=== PATIENT | male | born 1965 | race Caucasian/White ===

== ENCOUNTER 2024-06-18 09:51 | Inpatient (IN) | payer SELFPAY ==
[~2024-06-18] VITALS: Ht 175.3 cm; Wt 64.0 kg
[2024-06-18] VITALS (12 sets, daily range): BP systolic 91–128; BP diastolic 49–70
[~2024-06-18 09:51] MED LIST: LISINOPRIL5 MG PO; METFORMIN500 MG PO; SIMVASTATIN10 MG PO
--- NOTE | 2024-06-18 09:54 | NUR ---
PT BROUGHT IN VIA EMS TO ER ROOM 10
[2024-06-18 10:13] LABS: BASO% 0.3 % (0-3); EOS% 0.1 % (0-8); HEMATOCRIT 40.5 % (39.0-50.0); HEMOGLOBIN 13.9 g/dl (14.0-18.0); IMMATURE GRANULOCYTES 0.3 % (0.0-5.0); LYMPH% 19.2 % (15-41); MEAN CELL VOLUME 95.5 fL CALC (80.0-100.0); MEAN CORPUSCULAR HGB 32.8 pG CALC (26.0-32.0); MEAN CORPUSCULAR HGB CONC 34.3 g/dL CAL (32.0-36.0); MONO% 7.1 % (2-13); NEUT# 5.83 thou/uL (1.82-7.42); RED BLOOD COUNT 4.24 mill/uL (4.70-6.10); RED CELL DISTRI WIDTH 11.7 % (11.5-15.5)
[2024-06-18] MEDS ORDERED: SODIUM CHLORIDE 0.9% 1,000 ML IV ONE ×2 (10:15→12:40)
[2024-06-18 10:27] LABS: ALBUMIN 3.7 g/dL (3.2-5.0); ALKALINE PHOSPHATASE 86 u/l (38-126); ANION GAP 12 (6-22 (CALC)); BILIRUBIN, TOTAL 0.6 mg/dL (0.2-1.3); BUN 4 mg/dL (8-23); BUN/CREATININE RATIO 6 (12-20 (CALC)); CARBON DIOXIDE 26 mmol/l (22-30); CHLORIDE 99 mmol/l (95-108); CREATININE 0.6 mg/dL (0.7-1.3); ESTIMATED GFR 110 ML/MIN (>=90 (CALC)); LIPASE 160 u/l (23-300); POTASSIUM 4.2 mmol/l (3.5-5.1); SGOT/AST 32 u/l (19-48); SODIUM 133 mmol/l (137-146); TOTAL PROTEIN 7.7 g/dL (6.3-8.2)
--- NOTE | 2024-06-18 11:10 | NUR ---
PT TO XRAY VIA W/C W/OUT INCIDENT
--- NOTE | 2024-06-18 11:30 | NUR ---
PT RETURNS TO TX RM 10, MADE COMFORTABLE.REMAINS ON MONITOR, PROVIDED WARM BLANKETS FOR COMFORT.
[2024-06-18 11:38] LABS: URINE BILIRUBIN - DIPSTICK Negative (NEGATIVE); URINE BLOOD DIPSTICK Negative (NEGATIVE); URINE GLUCOSE - DIPSTICK Negative (NEGATIVE); URINE KETONE Negative (NEGATIVE); URINE LEUK ESTERASE Negative (NEGATIVE); URINE NITRITE - DIPSTICK Negative (Negative); URINE PH 5.5 (4.5-8.0); URINE PROTEIN - DIPSTICK Negative (NEG-TRACE); URINE SPECIFIC GRAVITY <=1.005; URINE UROBILINOGEN - DIPSTICK 0.2 E.U./dL (0.2)
[2024-06-18 11:39] LABS: URINE COLOR Yellow
[2024-06-18] MEDS ORDERED: SUGAMMADEX SODIUM 200 MG/2 ML SDV IV ONE (12:02)
[2024-06-18] MEDS ORDERED: LIDOCAINE HCL 2% (20 MG/ML) 5ML SDV IV ONE (12:02)
[2024-06-18] MEDS ORDERED: PHENYLEPHRINE HCL 10 MG/ML VIAL IV ONE (12:02)
[2024-06-18] MEDS ORDERED: SUCCINYLCHOLINE CHLORIDE 20 MG/ML 10ML VIAL IV ONE (12:02)
[2024-06-18] MEDS ORDERED: KETOROLAC TROMETHAMINE 30 MG/ML SDV IV ONE (12:02)
[2024-06-18] MEDS ORDERED: ROCURONIUM BROMIDE 10 MG/ML 5 ML VIAL IV ONE (12:02)
[2024-06-18] MEDS ORDERED: PROPOFOL 200 MG/20 ML VIAL IV ONE (12:02)
[2024-06-18] MEDS ORDERED: SODIUM CHLORIDE 0.9% 1,000 ML BAG IV ONE (12:02)
[2024-06-18] MEDS ORDERED: PIPERACILLIN Sodium-Tazobactam 3.375 GM in SODIUM CHLORIDE 0.9% 100 ML IV ONE (12:20)
--- NOTE | 2024-06-18 12:30 | NUR ---
ER MD AT BEDSIDE, DETAILED EXPLAINATION OF FINDINGS AND PLAN OF CARE, PT DENEIS ANY DISTRESS AT THIS TIME. PT REMAINS ON MONITOR, DENIES ANY NEEDS OR CONCERNS AT THIS TIME.
--- NOTE | 2024-06-18 12:45 | NUR ---
MD AT BEDSIDE, DETAILED EXPLAINATION OF PROCEDURE, PT VERBALIZES UNDERSTANDING OF ALL INFORMATION
--- NOTE | 2024-06-18 13:06 | NUR ---
bEDSIDE REPORT TO OR TEAM. DENIES ANY QUESTIONS UPON COMP[LETION
[2024-06-18] MEDS ORDERED: LIDOcaine HCl 1% (Local Anesth.) 20 ML VIAL ONE (13:07)
[2024-06-18] MEDS ORDERED: FAMOTIDINE 10MG/ML 2ML SDV IV ONE (13:23)
[2024-06-18] MEDS ORDERED: ACETAMINOPHEN 100 ML IV ONE (13:23)
[2024-06-18] MEDS ORDERED: SODIUM CHLORIDE 1,000 ML BTL IR ONE (13:40)
[2024-06-18] MEDS ORDERED: SODIUM CHLORIDE 500 ML BTL IR ONE (13:40)
--- NOTE | 2024-06-18 13:55 | NUR ---
PT ARRIVED TO THE UNIT VIA BED FROM THE OR, BEDSIDE REPORT GIVEN, PT IS A&O X3, PUPILS ARE PERRL, RESP. EVEN AND UNLABORED, LUNG SOUNDS ARE CLEAR, ABD DISTENDED AND SOFT WITH ACTIVE BOWEL SOUNDS, ABD DRESSING IN PLACE CD&I WITH HOPE DRAIN IN PLACE, TORRES CATH IN PLACE WITH CLEAR YELLOW URINE DRAINING, 18G RAC IV WITH FLUIDS INFUSING AT PRESCRIBED RATE, 18G LW SL, STRONG RADIAL & PEDAL PULSES, PT ORIENTED TO ROOM AND CALL GERARD SYSTEM, SAFETY MEASURES INFORCED, CALL GERARD WITHIN REACH
[2024-06-18] MEDS ORDERED: HYDROmorphone HCL 2 MG/AMP IV PRN (15:10)
[2024-06-18] MEDS ORDERED: SODIUM CHLORIDE 0.9% 1,000 ML IV PRN (15:10)
[2024-06-18] MEDS ORDERED: ONDANSETRON HCl 4 MG/2 ML SDV IV PRN (15:10)
[2024-06-18] MEDS ORDERED: DEXTROSE 250 ML IV PRN (15:15)
[2024-06-18] MEDS ORDERED: LABETALOL HCL 100 MG/TAB PO SCH (16:00)
[2024-06-18] MEDS ORDERED: NICOTINE TRANSDERMAL 21 MG/PATCH TD SCH (16:00)
--- NOTE | 2024-06-18 16:17 | NUR ---
patient glucose level is 154.
[2024-06-18] MEDS ORDERED: INSULIN LISPRO 100 UNITS/ML ML SC SCH (17:00)
--- NOTE | 2024-06-18 19:20 | NUR ---
PT RESTING IN BED AT THIS MOMENT. PT WAS LET KNOWN THAT HE NEEDED TO STAND AND SIT UP ON THE RECLINER AND HE AGREED. ASSISTED PT TO THE RECLINER AND TOLERATED WELL. REPORTS PAIN TO HER ABDOMEN 4/10 ON PAIN SCALE. BLOOD PRESSURE REMAINS SLIGHTLY LOW- WILL CONTINUE TO MONITOR SO HE CAN BE MEDICATED WITH DILAUDID. DRESSING TO ABDOMEN IS INTACT AND CLEAN WITHOUT ANY DRAINAGE NOTED. HOPE DRAIN EMPTIED WITH A LARGE AMOUNT OF SERONSANGUINEOUS FLUID 170 MLS. BOWEL SOUNDS ARE HYPOACTIVE AND ABDOMEN IS DISTENDED BUT SOFT. TORRES DRAINING CLEAR URINE AND EMPTIED WITH 200 CC. IVF NORMAL SALINE PATENT AND INFUSING VIA RIGHT FOREARM AT 125 MLS/HR ORDERED. 18 L FOREARM FLUSHED WITH 5 CC WELL AND WORKING PROPERLY. TELE MONITOR IN PLACE WITH ELADS INTACT AND WORKING WELL. BILATERAL SCD'S IN PLACE. NO EDMA NOTED TO LOWER EXTREMITIES AND PERIPHERAL PULSES PALPABLES TO TOUCH. ENCOURAGED AND INCTRUCTED ON HOW TO USE INCENTIVE SPIROMETER 10 TIMES EACH HOUR TO PREVENT ANY PNEUMONIA. PT ALSO WAS INSTRUCTED TO HOLD THE PILLOW TO HIS ABDOMEN TO PREVENT ANY COMPLICATIONES IN CASE HE COUGHS. WILL CONTINUE TO MONITO PATIENT PAIN. CALL LIGHT IS IN REACH AND SAFETY PRECAUTIONS IN PLACE.
[2024-06-18] MEDS ORDERED: KETOROLAC TROMETHAMINE 15 MG/ML SDV IV SCH (20:00)
[2024-06-18] MEDS ORDERED: PIPERACILLIN Sodium-Tazobactam 3.375 GM in SODIUM CHLORIDE 0.9% 100 ML IV SCH (21:00)
--- NOTE | 2024-06-18 21:24 | NUR ---
PATIENT SITTING U P IN THE RECLINER-AWAKE ALERT AND ORIENTEDX3. PATIENT ASKING TO GET BACK TO THE BED-MIN ASSIST BACK TO BED-MOVING SLOWLY AND C/O BLE PAIN-STATES THT HE HAS HAD THIS PAIN FOR A LONG TIME.STATES THAT HE IS DIAB AND WAS TAKING METFORMIN IN THE PAST BUT NOT TAKING ANY DIAB MEDICATION AT THIS TIME-NO PCP EITHER. BLOOD SUGAR TONIGHT WAS 183 AND COVERED WITH 1UNIT OF HUMALOG PER SS COVERAGE PROTOCOL. PROVIDED WITH JELLO FOR PO SNACK AND TOLERATED WELL. NO NAUSEA AT THIS TIME.TORRES CATH PATENT AND DRAINING YELLOW URINE. HOPE DRAIN INTACT AND DRAINING LARGE AMT OF CLOUDY SEROUS FLUID-EMPTIED 90CC AT THIS TIME. MABD DRESSING IS CDI AT THIS TIME. ABD DISTENDED WITH HYPO ACTIVE BS. IV NS PATENT AND INFUSING AT 125CC/HR RIGHT AC. SCD'S REAPPLIED AND ENCOURAGED USE OF IS. PATIENT WITH LOOSE NON-PRODUCTIVE COUGH. SAFETY PRECAUTIONS REINFORCED. CALL LIGHT IN REACH. WILL CONT TO MONITOR,
--- NOTE | 2024-06-18 23:07 | NUR ---
LABETALOL 100 MG PO WAS HOLD TO PT DUE TO RUNNING LOW BLOOD PRESSURE, LAST BP WAS 102/60, SD-71, PULSE OX-100. CALL LIGHT IS IN RECAH AND SAFETY PRECAUTIONS IN PLACE.
[2024-06-19] VITALS (11 sets, daily range): BP systolic 93–149; BP diastolic 63–79
--- NOTE | 2024-06-19 | NUR ---
PT RESTING IN SEMI PINTO'S POSITION AT THIS MOMENT. RESPS ARE EVEN AND UNLABORED. IVF NS INFUSIN VIA LEFT FOREARM AT 125 MLS/HR. BILATERAL SCD'S IN PLACE. TELE MONITOR RUNNING SR-71. CALL LIGHT IS IN REACH AND SAFETTY PRECAUTIOSN IN PLACE.
--- NOTE | 2024-06-19 04:00 | NUR ---
PT RESTING IN BED WATCHING TV AT THIS TIME. BREATHING IS EVEN AND UNLABORED. NO DSITRESS NOTED. REPORTS PAIN TO HIS BADOMEN 3/10 ON PAIN SCALE. IVF NS REMAINS INFUSING ORDERED. TELE MONITOR READING SR-80. CALL LIGHT IS IN REACH AND SAFETY PRECAUTIONS IN PLACE.
[2024-06-19 05:51] LABS: BASO% 0.1 % (0-3); HEMATOCRIT 34.7 % (39.0-50.0); IMMATURE GRANULOCYTES 0.4 % (0.0-5.0); LYMPH% 7.6 % (15-41); MEAN CELL VOLUME 98.6 fL CALC (80.0-100.0); MEAN CORPUSCULAR HGB CONC 33.4 g/dL CAL (32.0-36.0); MONO% 4.1 % (2-13); NEUT# 11.62 thou/uL (1.82-7.42); NEUT% 87.8 % (42-76); RED BLOOD COUNT 3.52 mill/uL (4.70-6.10); RED CELL DISTRI WIDTH 12.2 % (11.5-15.5)
[2024-06-19 05:52] LABS: HEMOGLOBIN 11.6 g/dl (14.0-18.0)
[2024-06-19 06:09] LABS: BILIRUBIN, TOTAL 0.6 mg/dL (0.2-1.3); CREATININE 0.6 mg/dL (0.7-1.3); POTASSIUM 4.1 mmol/l (3.5-5.1)
[2024-06-19 06:10] LABS: ALBUMIN 2.4 g/dL (3.2-5.0); TOTAL PROTEIN 5.4 g/dL (6.3-8.2)
--- NOTE | 2024-06-19 07:40 | NUR ---
PT IS FOUND RESTING COMFORTABLY IN BED. PT IS A&O X4 AND STABLE. PT CAN MOVE ALL EXTREMITES; NO COMPLAINTS OF PAIN. PT IS ABLE TO MAKE HIS NEEDS KNOWN. PLAN OF CARE WAS REVIEWED WITH THE PT; NO FURTHER QUESTIONS AT THIS TIME.
[2024-06-19] MEDS ORDERED: Pantoprazole Sodium 40 MG VIAL (Protonix) IV SCH (09:00)
[2024-06-19] MEDS ORDERED: chlordiazePOXIDE HCL 25 MG CAP PO PRN (11:05)
[2024-06-19] MEDS ORDERED: oxyCODONE 5MG/ ACETAMINOPHEN 325MG TAB PO PRN (12:15)
--- NOTE | 2024-06-19 12:15 | NUR ---
PT'S CONDITION REMAINS THE SAME. PT COMPLAINS OF A LITTLE PAIN- WILL MEDICATE NEEDED. BED ALARM IS ON AND CALL LIGHT IS WITHIN REACH.
--- NOTE | 2024-06-19 12:50 | NUR ---
THIS RN REMOVED TORRES; NO COMPLICATIONS.
--- NOTE | 2024-06-19 16:05 | NUR ---
PT'S CONDITION REMAINS THE SAME; BED ALARM IS ON, CALL LIGHT IS WITHIN REACH.
--- NOTE | 2024-06-19 21:00 | NUR ---
PT RESTING IN BED NO DISTRESS NOTED ON ASSESSMENT. PT ABLE TO SELF REPOSITION AND SIT ON SIDE OF BED. PT REPORTS NO PAIN AT THIS TIME. ABD DRESSING CHANGED. OLD DRESSING HAS SCANT AMOUNT OF DRY DRIANAGE. HOPE DRAIN EMPTIED MULTIPLE TIMES. IV FLUID INFUSION ONGOING WORKING PROPERLY AND IV ABX GIVEN. SCDS ON, NO EDEMA NOTED. CALL LIGHT WITHIN REACH. PLAN OF CARE ONGOING.
[2024-06-20] VITALS: BP 122/76
--- NOTE | 2024-06-20 | NUR ---
PT SLEEPING NO DISTRESS NOTED BREATHING EVENLY. CALL LIGHT WITHIN REACH. PLAN OF CARE ONGOING.
[2024-06-20 03:45] VITALS: BP 141/79
[2024-06-20 04:00] VITALS: BP 141/79
--- NOTE | 2024-06-20 04:15 | NUR ---
PT SLEEPING EASILY AROUSABLE NO DISTRESS NOTED. PT REPORTS NO PAIN AT THIS TIME. CALL LIGHT WITHIN REACH. PLAN OF CARE ONGOING.
[2024-06-20 04:48] LABS: BASO% 0.1 % (0-3); EOS% 0.7 % (0-8); HEMATOCRIT 35.2 % (39.0-50.0); IMMATURE GRANULOCYTES 0.7 % (0.0-5.0); LYMPH% 5.5 % (15-41); MEAN CELL VOLUME 98.1 fL CALC (80.0-100.0); MEAN CORPUSCULAR HGB 33.4 pG CALC (26.0-32.0); MEAN CORPUSCULAR HGB CONC 34.1 g/dL CAL (32.0-36.0); MONO% 4.1 % (2-13); NEUT# 13.55 thou/uL (1.82-7.42); NEUT% 88.9 % (42-76); RED BLOOD COUNT 3.59 mill/uL (4.70-6.10); RED CELL DISTRI WIDTH 12.3 % (11.5-15.5)
[2024-06-20 05:02] LABS: ALBUMIN 2.4 g/dL (3.2-5.0); BILIRUBIN, TOTAL 0.5 mg/dL (0.2-1.3); CREATININE 0.6 mg/dL (0.7-1.3); MAGNESIUM 1.4 mg/dL (1.6-2.3); POTASSIUM 3.6 mmol/l (3.5-5.1); TOTAL PROTEIN 5.6 g/dL (6.3-8.2)
--- NOTE | 2024-06-20 07:43 | NUR ---
PT IS FOUND RESTING COMFORTABLY IN BED. PT IS A&O X4; STABLE. PT IS NSR ON TELE. PT CAN MOVE ALL EXTREMITES; GENERAL WEAKNESS AND PAIN UPON EXERTION. PT IS ABLE TO MAKE HIS NEEDS KNOWN. PLAN OF CARE WAS REVIEWED; NO FURTHER QUESTIONS AT THIS TIME. CALL LIGHT IS WITHIN REACH; BED ALARM IS ON.
[2024-06-20] MEDS ORDERED: MAGNESIUM SULFATE HEPTAHYDRATE 100 ML IV SCH (08:00)
[2024-06-20 08:24] VITALS: BP 129/67
[2024-06-20] MEDS ORDERED: MULTIPLE VITAMIN TABLET PO SCH (09:00)
[2024-06-20] MEDS ORDERED: FOLIC ACID 1 MG/TAB PO SCH (09:00)
[2024-06-20] MEDS ORDERED: THIAMINE HCL 100 MG TAB PO SCH (09:00)
--- NOTE | 2024-06-20 12:13 | NUR ---
[facility] results: Preliminary blood culture shows 1 out of 4 bottles positive for Bacteroides fragilis. Patient currently on Zosyn 3.375 gm IV q6h, which is preferred treatment. Dr aCstrejon and Cindy Malone notified.
--- NOTE | 2024-06-20 12:30 | NUR ---
PT'S CONDITION REMAINS THE SAME. PT IS A&O X4 AND STABLE. PT IS MOVING A LOT MORE TODAY WHICH WAS THE INITIAL GOAL. PT STATES HE IS HAVING ABDOMINAL PAIN WRAPPING AROUND HIS WHOLE STOMACH; WILL MEDICATE NEEDED. DRAIN IS WORKING PROPERLY; WILL DOCUMENT TOTAL AT END OF SHIFT. PATIENT HAS BEEN GOING FOR WALKS ASSISTED BY MYSELF OR THE STUDENTS. BED ALARM IS ON; CALL LIGHT IS WITHIN REACH.
--- NOTE | 2024-06-20 16:30 | NUR ---
PT'S CONDITION REMAINS THE SAME. BED ALARM IS ON AND CALL LIGHT IS WITHIN REACH.
--- NOTE | 2024-06-20 17:53 | NUR ---
PATIENT WENT FOR SEVERAL WALKS TODAY. PT'S PAIN HAS INCREASED SLIGHTLY BUT IS STILL MANAGABLE THROUGH PO MEDICATION. THIS RN PRE MEDICATED HIM FOR TWO WALKS AND IT SEEMED TO HELP. HOPE DRAIN TOTAL OUTPUT FROM [facility]A-NOW IS 640. DR. COONEY WAS MADE AWARE OF ALL THIS INFORMATION AND STATES THIS IS EXPECTED.
--- NOTE | 2024-06-20 20:00 | NUR ---
PATIENT LYING IN BED. ASSESSMENT COMPLETED. PATIENT ALERT AND ORIENTED X 4. C/O PAIN OF A 2, BUT DECLINES PAIN RELIEF MEASURES. DRESSING CHANGED, APPLIED 2 - 2X2 GAUZES, 2 TEGADERM, 1 SPLINT SPONGE, 1 NONADHERENT DRESSING AND 1 ABD PAD. NO DRAINAGE NOTED IN SUPPLIES REMOVED. 100 mL OF PURULENT DRAINING NOTED. 200 mL OF DARK YELLOW URINE NOTED. NO CONCERNS AT THIS TIME. SAFETY MEASURES IN PLACE INCLUDING BED IN LOW POSITION AND CALL LIGHT RESTING NEXT TO R HAND. NO APPARENT DISTRESS NOTED. WILL CONTINUE WITH PLAN OF CARE. GLU 169.
[2024-06-20 20:18] VITALS: BP 150/81
[2024-06-20 23:33] VITALS: BP 141/75
[2024-06-21] VITALS (8 sets, daily range): BP systolic 135–156; BP diastolic 72–77
--- NOTE | 2024-06-21 | NUR ---
PATIENT APPEARS TO BE RESTING WITH EYES CLOSED. RISE AND FALL OF CHEST NOTED. NO APPARENT DISTRESS. WILL CONTINUE WITH PLAN OF CARE.
--- NOTE | 2024-06-21 03:51 | NUR ---
PATIENT LYING IN BED WATCHING TV. PATIENT DENIES CONCERNS AT THIS TIME. ALL NEEDS MET. 115 mL OF PURULENT DRAINAGE NOTED IN HOPE DRAIN.
[2024-06-21 05:37] LABS: BASO% 0.2 % (0-3); HEMATOCRIT 35.4 % (39.0-50.0); HEMOGLOBIN 11.9 g/dl (14.0-18.0); IMMATURE GRANULOCYTES 0.5 % (0.0-5.0); LYMPH% 14.7 % (15-41); MEAN CELL VOLUME 97.8 fL CALC (80.0-100.0); MEAN CORPUSCULAR HGB 32.9 pG CALC (26.0-32.0); MEAN CORPUSCULAR HGB CONC 33.6 g/dL CAL (32.0-36.0); MONO% 9.9 % (2-13); NEUT# 4.26 thou/uL (1.82-7.42); NEUT% 72.7 % (42-76); RED BLOOD COUNT 3.62 mill/uL (4.70-6.10); RED CELL DISTRI WIDTH 12.1 % (11.5-15.5)
[2024-06-21 05:52] LABS: ALBUMIN 2.2 g/dL (3.2-5.0); BILIRUBIN, TOTAL 0.4 mg/dL (0.2-1.3); CREATININE 0.6 mg/dL (0.7-1.3); POTASSIUM 3.7 mmol/l (3.5-5.1); TOTAL PROTEIN 5.2 g/dL (6.3-8.2)
[2024-06-21 06:01] LABS: MAGNESIUM 1.8 mg/dL (1.6-2.3)
--- NOTE | 2024-06-21 07:49 | NUR ---
PT IS FOUND RESTING COMFORTABLY IN BED. PT IS A&O X4 AND STABLE. PT CAN MOVE ALL EXTREMITES; INDEP. IN THE ROOM. PLAN OF CARE WAS REVIEWED WITH THE PT; NO FURTHER QUESTIONS AT THIS TIME. CALL LIGHT WITHIN REACH; BED ALARM IS ON.
--- NOTE | 2024-06-21 11:45 | NUR ---
PT'S CONDITION REMAINS THE SAME. PT IS EXPERIENCING SOME PAIN DUE TO MOVEMENT; WILL MEDICATE NEEDED. BED ALARM IS ON; CALL LIGHT IS WITHIN REACH. 2 WALKS ON THE UNIT HAS BEEN COMPLETED
--- NOTE | 2024-06-21 15:05 | NUR ---
PT'S CONDITION REMAINS THE SAME. WE WILL GO FOR ANOTHER SOON. BED ALARM IS ON; CALL LIGHT IS WITHIN REACH.
--- NOTE | 2024-06-21 20:00 | NUR ---
RECEIVED REPORT FROM NURSE JOSE CRUZ, PATIENT ALERT ORIENTED ABLE TO MAKE NEEDS KNOWN, PATIENT DRESSING CHANGED ORDERED, HOPE DRAIN EMPTIED YELLOW FLUID,, IV INFUSING WELL ON LEFT WRIST NS @ 80, PATIENT USES INCENTIVE SPIROMETER 1000 INSPIRATORY VOLUME, PATIENT ON SCD, CALL LIGHT IN REACHED.
--- NOTE | 2024-06-21 21:51 | NUR ---
DRESSING CHANGED AT THSI TIME, DENIES PAIMN, PATIENT TOLERATED DRESSING CHANGE.
--- NOTE | 2024-06-22 | NUR ---
PATIENT DENEIS PAIN BREATGING EVN UNALBORED SCD IN PLAXCED.
[2024-06-22 00:22] VITALS: BP 134/61
--- NOTE | 2024-06-22 03:41 | NUR ---
PATINET AWAKE WATCHING TV, DENIES PAIN AT THIS TIME, BREATHING EVEN UNALABORED, ZOSYN CURRENTLY INFUSING,SEAFTY PRECAUTION IN PLAECD.
[2024-06-22 04:12] LABS: BASO% 0.2 % (0-3); HEMATOCRIT 35.8 % (39.0-50.0); HEMOGLOBIN 11.7 g/dl (14.0-18.0); IMMATURE GRANULOCYTES 0.8 % (0.0-5.0); LYMPH% 15.1 % (15-41); MEAN CELL VOLUME 99.2 fL CALC (80.0-100.0); MEAN CORPUSCULAR HGB 32.4 pG CALC (26.0-32.0); MEAN CORPUSCULAR HGB CONC 32.7 g/dL CAL (32.0-36.0); MONO% 13.6 % (2-13); NEUT% 67.3 % (42-76); RED BLOOD COUNT 3.61 mill/uL (4.70-6.10); RED CELL DISTRI WIDTH 12.1 % (11.5-15.5)
[2024-06-22 04:22] VITALS: BP 137/71
[2024-06-22 04:28] LABS: ALBUMIN 2.1 g/dL (3.2-5.0); BILIRUBIN, TOTAL 0.4 mg/dL (0.2-1.3); CREATININE 0.7 mg/dL (0.7-1.3); MAGNESIUM 1.3 mg/dL (1.6-2.3); POTASSIUM 3.7 mmol/l (3.5-5.1)
[2024-06-22 07:10] VITALS: BP 147/70
--- NOTE | 2024-06-22 07:10 | NUR ---
REPORT RECEIVED FROM ANNIERN
--- NOTE | 2024-06-22 08:30 | NUR ---
PT RESTING IN SEMI FOWLERS POSITION WATCHING TV, A&O X3. ASSESSMENT COMPLETED;PT DENIES ANY CURRENT PAIN OR DISCOMFORTS, PAIN SCALE AND REPORTING EDUCATED;RESPIRATIONS EVEN AND UNLABORED ON RA,CLEAR LUNG SOUNDS;ABDOMEN DISTENDED/SOFT ON PALPATION AND HYPOACTIVE IN ALL 4 QUADRANTS. PT POD #3 LAP APPY. MIDLING INCISION REMAINS CDI WELL ADDITIONAL X2 INCISIONAL AREAS ON LEFT QUADRANT. HOPE DRAIN NOTED TO BE DRAINING SEROUS FLUID, EMPTIED OF 90CC AT THIS TIME. WEAK PEDAL PULSES;#22G TO LW INFUSING NS @ 80ML/HR, SITE APPEARS HEALTHY.ACCUCHECK 98, NO COVERAGE NEEDED;PT DENIES ANY ADDITIONAL QUESTIONS OR NEEDS AND IS ENCOURAGED TO CALL FOR ASSISTANCE IF NEEDED;FALL PRECAUTIONS REMAIN IN PLACE WITH BED IN THE LOWEST POSITION AND CALL LIGHT IN REACH;FREQUENT ROUNDS MADE.
--- NOTE | 2024-06-22 10:18 | NUR ---
AT BEDSIDE DISCUSSING POC WITH PT.
[2024-06-22 10:37] VITALS: BP 145/77
--- NOTE | 2024-06-22 10:42 | NUR ---
PATIENT ASSISTED TO RECLINER.
[2024-06-22] MEDS ORDERED: MAGNESIUM SULFATE HEPTAHYDRATE 100 ML IV SCH (11:00)
--- NOTE | 2024-06-22 11:10 | NUR ---
PT OOB RESTING IN RECLINER WATCHING TV. RESPIRATIONS REMAIN EVEN AND UNLABORED ON RA;PT DENIES ANY CURRENT PAIN OR DISCOMFORTS. TELE MONITORING IN PLACE;ABDOMINAL DRGS CDI. HOPE EMPTIED OF 50CC OF SEROUS FLUID. #18G TO LW REMAINS PATENT WITH NS INFUSING WITH EASE.ACCUCHECK 121, NO COVERAGE NEEDED. ENCOURAGED TO CALL FOR ASSISTANCE IF NEEDED;CALL LIGHT IN REACH;FREQUENT ROUNDS MADE.
--- NOTE | 2024-06-22 12:29 | NUR ---
AT BEDSIDE DISCUSSING POC WITH PT.
[2024-06-22] MEDS ORDERED: DOCUSATE SODIUM 100 MG/CAP PO SCH (13:30)
--- NOTE | 2024-06-22 13:30 | NUR ---
IV SITE NOTED TO BE LEAKING, SITE REMOVED WITH CATHETER INTACT. NEW # 22G STARTED TO LFA ON 1ST ATTEMPT BY THIS WRITTER. PT TOLERATED WELL.PT ALSO AMBULATED X2 HALLWAYS WITH WALKER AND WRITTER AT BEDSIDE. PT RE-POSITIONED INTO BED PER REQUEST. HOPE EMPTIED OF 60CC OF SEROUS FLUID. CALL LIGHT IN REACH;FREQUENT ROUNDS MADE.
[2024-06-22 14:37] VITALS: BP 128/70
--- NOTE | 2024-06-22 15:20 | NUR ---
PT RESTING IN BED WATCHING TV. RESPIRATIONS REMAIN EVEN AND UNLABORED ON RA. PT DENIES ANY CURRENT PAIN OR NEEDS.MIDLINE DRESSING AND SURROUNDING X2 DRESSINGS REMAIN CDI. HOPE DRAIN EMPTIED OF 40CC OF SEROUS FLUID. TELE MONITORING IN PLACE.#22G TO LFA REMAINS PATENT INFUSING NS @ 20ML/HR, ABX HUNG AT THIS TIME. PT DENIES ANY ADDITIONAL NEEDS. CALL LIGHT IN REACH;FREQUENT ROUNDS MADE.
[2024-06-22 18:25] VITALS: BP 148/73
--- NOTE | 2024-06-22 20:00 | NUR ---
PATIENT SITTING UP IN BED WATCHING TV-ALERT AND ORIENTEDX3. ABD DRESSING IS CDI. HOPE EMPTIED FOR LARGE AMT OF SEROUS FLUID. PATIENT VOIDING CLEAR YELLOW URINE IN URINAL AT BEDSIDE.IVF PATENT AND INFUSING VIA LEFT FOREARM AT KVO-SITE IS HEALTHY AT THIS TIME. PATIENT STATES THAT HE IS PASSING FLATUS BUT NO BM SINCE SURGERY ON 06/18. LUNGS ARE CLEAR-ENCOURAGED USE OF IS Q1H WHILE AWAKE IN REPS OF 10-STATES THAT HE HAS BEEN USING IT INSTRUCTED. ENCOURAGED INCREASED ACTIVITY TOLERATED-PATIENT STATES THAT HE HAS BEEN UP TWICE TODAY-HAS INCREASED PAIN TO BOTH LE WHEN OOB. STATES THAT THIS IS CHRONIC AND IS PROBABLY FROM NEUROPATHY CAUSED BY NON-COMPLANCE WITH TREATMENT FOR DIAB. ATTEMPT TO EDUCATE PATIENT REGUARDING THE POSSIBLE HOUSING OFFICER EFFECT OF NON-COMPLIANCE IN TREATING DIAB INCLUDING BUT NOT LIMITED TO C/V COMPLICATIONS, BLINDNESS, NEUROPATHY, VASCULAR COMPLICATIONS, POSSIBLE AMPUTATIONS, KIDNEY DISEASE. SAFETY PRECAUTIONS REINFORCED. CALL LIGHT IN REACH. WILL CONT TO MONITOR.
--- NOTE | 2024-06-22 22:35 | NUR ---
BLOOD [id number] WITH HUMALOG 1UNIT PER HUMALOG SS COVERAGE PROTOCOL. PROVIDED WITH HS SNACK. MEDICATED FOR PAIN WITH PERCOCET. ATTEMPT TO EDUCATE PATIENT REGUARDING DIAB AND THE NEED FOR BETTER UNDERSTANDING OF THE DISEASE. PATIENT STATES THAT HE HAS LONG FAMILY HISTORY AND HOPES THAT HE GETS SOMETHING FOR HIS DIAB UPON DISCHARGE. EXPLAINED TO THE PATIENT THAT SOME OF HIS LOWER EXTREMITY AND FOOT PAIN COULD BE RELATED TO NEUROPATHY FROM SKILLED NURSING ELEVATED BLOOD SUGARS. VERBALIZED UNDERSTANDING. VOIDING CLEAR Y ELLOW URINE IN URINAL. HOPE EMPTIED AGAIN FOR 60CC OF CLEAR SEROUS FLUID. ENCOURAGED USE OF IS INSTRUCTED. ENCOURAGED AMBULATION-STATES THAT HE WILL IN THE MORNING. ALREADY WAS UP TWICE TODAY-TOLD PATIENT THAT INCREASING ACTIVEY TOLERATED WAS GOOD FOR RECOVERYT PROCESS. PATIENT CONT TO WATCH TV. CIWA SCORE WAS 0. CALL LIGHT IN REACH. WILL CONT TO MONITOR
[2024-06-23] VITALS (8 sets, daily range): BP systolic 122–151; BP diastolic 71–79
--- NOTE | 2024-06-23 00:55 | NUR ---
PATIENT SITTING UP WATCHING TV. AWAKE ALERT AND ORIENTED WITH NO COMPLAINTS AT THIS TIME. HOPE EMPTIED FOR ANOTHER 90CC OF SEROUS FLUID AND VOIDED ANOTHER 300CC OF CLEAR YELLOW URINE. ABD DRESSING IS CDI. IVF PATENT AND INFUSING AT KVO RATE VIA LEFT FOREARM SITE. ENCOURAGED USE OF IS AND SCD'S. SAFETY PRECAUTIONS REINFORCED. CALL LIGHT IN REACH. WILL CONT TO MONITOR.
--- NOTE | 2024-06-23 03:00 | NUR ---
PATIENT SITTING UP IN BED WITH EYES CLOSED. RESPS ARE EVEN AND UNLABORED. IVF PATENT AND INFUSING AT KVO RATE. ZOSYN HUNG AND INFUSING ORDERED. CALL LIGHT IN REACH. WILL CONT TO MONITOR.
[2024-06-23 05:23] LABS: ALBUMIN 2.2 g/dL (3.2-5.0); ALKALINE PHOSPHATASE 63 u/l (38-126); ANION GAP 10 (6-22 (CALC)); BILIRUBIN, TOTAL 0.4 mg/dL (0.2-1.3); CARBON DIOXIDE 26 mmol/l (22-30); CHLORIDE 105 mmol/l (95-108); CREATININE 0.6 mg/dL (0.7-1.3); ESTIMATED GFR 110 ML/MIN (>=90 (CALC)); MAGNESIUM 1.6 mg/dL (1.6-2.3); POTASSIUM 3.3 mmol/l (3.5-5.1); SGOT/AST 28 u/l (19-48); SODIUM 138 mmol/l (137-146); TOTAL PROTEIN 5.2 g/dL (6.3-8.2)
[2024-06-23 05:25] LABS: HEMATOCRIT 35.4 % (39.0-50.0); MEAN CORPUSCULAR HGB 32.9 pG CALC (26.0-32.0); MEAN CORPUSCULAR HGB CONC 33.9 g/dL CAL (32.0-36.0); RED BLOOD COUNT 3.65 mill/uL (4.70-6.10)
[2024-06-23 05:34] LABS: BUN < 2 mg/dL (8-23); BUN/CREATININE RATIO 3 (12-20 (CALC))
--- NOTE | 2024-06-23 05:59 | NUR ---
PATIENT SITTING UP ION BED WITH EYES CLOSED. RESPS ARE EVEN AND UNLABORED. IVF NS PATENT AND INFUSING VIALEFT FOREARM SITE AT KVO RATE-20CC/HR. TOTAL HOPE OUTPUT FOR THIS SHIFT IS 330 SEROUS FLUID. CONT TO VID IN URINAL CLEAR YELLOW URINE. ABD CDI AT THIS TIME. TELE MONITOR IN PLACE AND CONT TO READ SR-70'S. CALL LIGHT IN REACH, WILL CONT TO MONITOR.
--- NOTE | 2024-06-23 06:55 | NUR ---
REPORT RECEIVED FROM KAMLESH MARINELLI
--- NOTE | 2024-06-23 08:10 | NUR ---
PT RESTING IN SEMI FOWLERS POSITION EATING BREAKFAST, A&O X3. POD #5 LAP APPY. PT DENIES ANY CURRENT PAIN OR DISCOMFORTS, PAIN SCALE AND REPORTING EDUCATED;ASSESSMENT COMPLETED;RESPIRATIONS EVEN AND UNLABORED ON RA,CLEAR LUNG SOUNDS NOTED. I.S. AT BEDSIDE AND ENCOURAGED PT USAGE.MIDLINE INCISION NOTED. DSG CHANGE COMPLETED WITH 23 MABLE NOTED TO MIDLINE AND 2 INCISIONAL WOUNDS TO LEFT QUAD. X2 MABLE PER INCISION AREA. HOPE DRAIN NOTED TO RT QUAD AND EMPTIED OF 60CC OF SEROUS DRAINAGE. STRONG PEDAL PULSES;#22G TO LFA INFUSING NS @ 20ML/HR,SITE APPEARS HEALTHY;TELE MONTIOR #[address];ACCUCHECK 101, NO COVERAGE NEEDED.PT DENIES ANY ADDITIONAL NEEDS AND IS ENCOURAGED TO CALL FOR ASSISTANCE IF NEEDED;FALL PRECAUTIONS IN PLACE WITH BED IN THE LOWEST POSITION AND CALL LIGHT IN REACH;FREQUENT ROUNDS MADE
[2024-06-23] MEDS ORDERED: POTASSIUM CHLORIDE 20 MEQ/TAB PO SCH (09:00)
--- NOTE | 2024-06-23 09:10 | NUR ---
AT BEDSIDE DISCUSSING POC WITH PT.
--- NOTE | 2024-06-23 11:40 | NUR ---
PT RESTING IN SEMI FOWLERS POSITION EATING LUNCH. RESPIRATIONS EVEN AND UNLABORED ON RA.PT DENIES ANY CURRENT PAIN OR DISCOMFORTS.TELE MONITORING IN PLACE;ABDOMINAL DRESSINGS CDI. HOPE DRAIN EMPTIED OF 120CC OF SEROUS DRAINAGE. ACCUCHECK 142, NO COVERAGE NEEDED. IV SITE TO LFA INFUSING PER ORDER. ENCOURAGED TO CALL FOR ASSISTANCE IF NEEDED.CALL LIGHT IN REACH
--- NOTE | 2024-06-23 15:15 | NUR ---
PT REMAINS OOB IN RECLINER WATCHING TV.RESPIRATIONS EVEN AND UNLABORED ON RA. PT DENIES ANY CURRENT PAIN OR NEEDS;TELE MONITORING IN PLACE;IV FLUIDS INFUSING PER ORDER AND ABX ADMINISTERED AT THIS TIME. HOPE DRAIN NOTED AND ABD DSG CDI.PT DENIES ANY ADDITIONAL NEEDS.CALL LIGHT IN REACH.
--- NOTE | 2024-06-23 20:00 | NUR ---
RECEIVED REPORT FROM NURSE NURSE MARY, PATIENT SITTING IN BED. BRESTHING EVEN UNLABORED, DENIES PAIN AT THIS TIME, IV INFUSING WELL ON LFA NS@ 20CC/HRM OCCASIONAL COUGH NOTED, ABDOMINAL DRESSING CDI, ON TELEMETRY, LUNG SOUNS CLEAR HOPE DRAIN WITH SEROUS FLUID, EMPTIED, CIWA 0, PATIENT USES INCENTIVE SPIROMETER 1000 INSPIRATORY VOLUME,AND ON SCD, CALL LIGHT IN REACHED.
[2024-06-24] VITALS (7 sets, daily range): BP systolic 130–152; BP diastolic 70–81
--- NOTE | 2024-06-24 | NUR ---
PATIENT RESTING IN BED,EYES CLOSED, NO DISCOMFORTS NOTED AT THIS TIME, BREATHING UNLABORED CALL LIGHT WITHIN REACHED.
--- NOTE | 2024-06-24 05:20 | NUR ---
PATIENT RESTING IN BED, BREATHING EVEN UNLABORED, CALL LIGHT WITHIN REACHED.
--- NOTE | 2024-06-24 07:15 | NUR ---
BEDSIDE REPORT RECEIVED FROM MINNIE. PT RESTING QUIETLY IN BED WITH EYES CLOSED AND RESP AT EASE. WILL MONITOR.
[2024-06-24] MEDS ORDERED: MAGNESIUM CITRATE 296 ML/BTL PO SCH (09:00)
[2024-06-24 09:21] LABS: ALBUMIN 2.4 g/dL (3.2-5.0); BILIRUBIN, TOTAL 0.4 mg/dL (0.2-1.3); CREATININE 0.6 mg/dL (0.7-1.3); MAGNESIUM 1.2 mg/dL (1.6-2.3); POTASSIUM 3.7 mmol/l (3.5-5.1); TOTAL PROTEIN 5.6 g/dL (6.3-8.2)
[2024-06-24] MEDS ORDERED: MAGNESIUM SULFATE HEPTAHYDRATE 100 ML IV SCH (12:00)
--- NOTE | 2024-06-24 12:00 | NUR ---
PT COMPLETED MAG CITRATE BOTTLE AND ASSISTED TO BR AND VOIDED WITH SMALL BM. PT INDICATED HE PASSED GAS AND FEELING BETTER. ASSISTED BACK TO BED WITH CALL LIGHT IN REACH. WILL CONTINUE TO MONITOR.
--- NOTE | 2024-06-24 18:27 | NUR ---
PT RESTED ON AND OFF THROUGHOUT SHIFT GETTING UP TO BR TO VOID. PT HAD MAG CITRATE FOR BM AND HAD POSITIVE RESULTS. RIGHT QUADRANT HOPE REMOVED AFTER DR. COONEY INFORMED OF 210ML DRAINAGE REMAINED. HOPE DRAIN WITH CATH TIP INTACT AND DRESSING CHANGED TO MID ABDOMINAL INCISION AND 2 LAP SITES. PT PUJA WELL. MAG REPLACED WITH 2 GRAMS IV. PT WITH POTENTIAL DISCHARGE TOMORROW. CALL LIGHT MAINTAINED IN REACH AND PT UP AMBULATED SEVERAL TIMES IN ROOM FOR STRENGTHENING.
[2024-06-25] VITALS: BP 130/73
--- NOTE | 2024-06-25 00:15 | NUR ---
PT. resting in bed no c/o pain or any discomfort. call light whntin reach will continue to monitor.
--- NOTE | 2024-06-25 00:25 | NUR ---
PT resting in bed dressing change done at 2200 due to leaking HOPE drain site no c/o pain or any discomfort call light within reach will continue to monitr.
[2024-06-25 03:25] VITALS: BP 135/74
[2024-06-25 04:00] VITALS: BP 135/74
[2024-06-25 04:56] LABS: ALBUMIN 2.3 g/dL (3.2-5.0); BILIRUBIN, TOTAL 0.4 mg/dL (0.2-1.3); CREATININE 0.6 mg/dL (0.7-1.3); POTASSIUM 3.6 mmol/l (3.5-5.1); TOTAL PROTEIN 5.4 g/dL (6.3-8.2)
[2024-06-25 05:02] LABS: BASO% 0.2 % (0-3); EOS% 2.2 % (0-8); HEMATOCRIT 34.6 % (39.0-50.0); HEMOGLOBIN 11.5 g/dl (14.0-18.0); MEAN CELL VOLUME 99.4 fL CALC (80.0-100.0); MEAN CORPUSCULAR HGB CONC 33.2 g/dL CAL (32.0-36.0); MONO% 6.8 % (2-13); NEUT# 6.57 thou/uL (1.82-7.42); NEUT% 71.8 % (42-76); RED BLOOD COUNT 3.48 mill/uL (4.70-6.10); RED CELL DISTRI WIDTH 12.1 % (11.5-15.5)
[2024-06-25 05:17] LABS: MAGNESIUM 1.8 mg/dL (1.6-2.3)
--- NOTE | 2024-06-25 05:19 | NUR ---
Pt resting in bed. No c/o pain or any discomfort. HOPE drain site dressing changed @ 0400 due to saturation. call light within reach will continueto monitor
[2024-06-25 07:00] VITALS: BP 132/69
--- NOTE | 2024-06-25 07:38 | NUR ---
PT IS AOX4, RESPIRATIONS ARE EVEN AND UNLABORED ON ROOM AIR, PT DEMONSTRATED USE OF IS REACHING 1500, LUNGS ARE DIM THROUGHOUT, BOWEL SOUNDS ARE ACTIVE IN ALL 4 QUADRANTS, PEDAL PULSES WEAK BUT PALPABLE TO TOUCH, ABD DRESSING IS CLEAN, DRY, DRESSING TO THE RIGHT IS CLEAN, DRY, INTACT AT THIS TIME, PT DENIES PAIN AT THIS TIME.
[2024-06-25] MEDS ORDERED: LACTULOSE 20 GM/30 ML UDC PO SCH (08:00)
--- NOTE | 2024-06-25 08:12 | NUR ---
PT STATES HE HAD A BM YESTERDAY.
[2024-06-25] MEDS ORDERED: BISACODYL 10 MG SUPP RE SCH (08:30)
--- NOTE | 2024-06-25 08:47 | NUR ---
Dr Brito at bedside discussing plan of care with pt at this time.
--- NOTE | 2024-06-25 10:48 | NUR ---
ABD MIDLINE DRESSING CHANGED. 23 MABLE PRESENT TO MIDLINE, SITE IS CLEAN, DRY, INTACE WITH NO REDNESS, NO DRAINAGE PRESENT. BOTH RIGHT LAP SITES HAVE 2 MABLE PRESENT, ARE CLEAN, DRY, INTACT WITH NO REDNEDD, NO SWELLING, AND NO DRAINAGE NOTED. COVER INCISIONAL SITES WITH ABD DRESSING. LEFT DRAIN SITE IS CLEAN WITH SEROUS DRAINAGE FROM OPENING. COVERED SITE WITH 4X4 DRESSING. PT TOLERATED WITH NO COMPLAINTS.
[2024-06-25 10:58] VITALS: BP 140/68
--- NOTE | 2024-06-25 12:09 | NUR ---
PT SITTING UP IN THE BED EATING LUNCH, DIABETIC EDUCATION PROVIDED TO PT. PT DENIES PAIN AT THIS TIME.
[2024-06-25] MEDS ORDERED: PERCOCET 5/325M1 TAB PO (12:22)
[2024-06-25] MEDS ORDERED: AUGMENTIN500TAB PO (12:44)
--- NOTE | 2024-06-25 12:55 | NUR ---
RIGHT DRAIN SITE DRESSING CHANGED.
--- NOTE | 2024-06-25 14:21 | NUR ---
REVIEWED DISCHARGE INSTRUCTIONS WITH PT. REMOVED IV, REMOVED TELE MONITOR AND PLACED IT IN RETURN BIN AT NURSES STATIONS. PT AWAITING RIDE.
== END 2024-06-25 14:53 | disposition home or self-care (01) | DRG 398 ==
LOC: ED 09:51 → ED-I 12:36 → ED 12:36 → MS2 13:20 → ED-I 13:23 → ED 13:23 → MS2 06-25 14:53
PROVIDERS: Family Medicine; Nurse Practitioner Family; Surgery; ADMIT Internal Medicine; ATTEND Internal Medicine
PROC: 0DTJ0ZZ Resection of Appendix, Open Approach (ICD-10-PCS; principal; 2024-06-18)
PROC: 0WJG4ZZ Inspection of Peritoneal Cavity, Percutaneous Endoscopic Approach (ICD-10-PCS; 2024-06-18)
DX: K35.33 Acute appendicitis with perforation, localized peritonitis, and gangrene, with abscess (principal); R18.8 Other ascites; R78.81 Bacteremia; B95.4 Other streptococcus as the cause of diseases classified elsewhere; I10 Essential (primary) hypertension; E11.9 Type 2 diabetes mellitus without complications; F10.20 Alcohol dependence, uncomplicated; F17.210 Nicotine dependence, cigarettes, uncomplicated; Z79.84 Long term (current) use of oral hypoglycemic drugs; Z20.822 Contact with and (suspected) exposure to COVID-19
CPT/HCPCS: J0131; J1171; J1815; J1885; J2405; J2470; J2543; J3475; Q9967

== ENCOUNTER 2024-06-28 10:55 | Emergency (ER) | payer SELFPAY ==
[2024-06-28] VITALS (10 sets, daily range): BP systolic 137–158; BP diastolic 73–84
[~2024-06-28] VITALS: Ht 175.3 cm; Wt 72.0 kg
[~2024-06-28 10:55] MED LIST changes: +AUGMENTIN500TAB PO; +PERCOCET 5/325M1 TAB PO
[2024-06-28 13:23] LABS: BASO% 0.3 % (0-3); EOS% 0.2 % (0-8); IMMATURE GRANULOCYTES 0.4 % (0.0-5.0); LYMPH% 13.5 % (15-41); MEAN CELL VOLUME 96.5 fL CALC (80.0-100.0); MEAN CORPUSCULAR HGB 31.9 pG CALC (26.0-32.0); MEAN CORPUSCULAR HGB CONC 33.1 g/dL CAL (32.0-36.0); MONO% 5.5 % (2-13); NEUT# 9.09 thou/uL (1.82-7.42); NEUT% 80.1 % (42-76); RED BLOOD COUNT 4.26 mill/uL (4.70-6.10); RED CELL DISTRI WIDTH 12.2 % (11.5-15.5)
[2024-06-28 13:33] LABS: HEMATOCRIT 41.1 % (39.0-50.0); HEMOGLOBIN 13.6 g/dl (14.0-18.0)
[2024-06-28 13:58] LABS: BILIRUBIN, TOTAL 0.5 mg/dL (0.2-1.3); CREATININE 0.6 mg/dL (0.7-1.3)
[2024-06-28 14:10] LABS: ALBUMIN 3.3 g/dL (3.2-5.0); POTASSIUM 4.5 mmol/l (3.5-5.1); TOTAL PROTEIN 7.1 g/dL (6.3-8.2)
[2024-06-28] MEDS ORDERED: KETOROLAC TROMETHAMINE 30 MG/ML SDV IV ONE (15:25)
[2024-06-28] MEDS ORDERED: ORPHENADRINE CITRATE 30 MG/ML AMP IV ONE (15:25)
[2024-06-28] MEDS ORDERED: METFORMIN HCL500 M1 PO ×2 (15:59→16:29)
[2024-06-28] MEDS ORDERED: METHOCARBAMOL500 MG PO ×2 (16:01→16:29)
[2024-06-28] MEDS ORDERED: NAPROXEN500 MG PO ×2 (16:01→16:29)
== END 2024-06-28 16:39 | disposition home or self-care (01) | DRG 552 ==
LOC: ED 10:55
PROVIDERS: Nurse Practitioner
DX: M54.50 Low back pain, unspecified (principal); G89.29 Other chronic pain; I10 Essential (primary) hypertension; E11.9 Type 2 diabetes mellitus without complications; Z79.84 Long term (current) use of oral hypoglycemic drugs; Z72.0 Tobacco use
CPT/HCPCS: J2360